=== PATIENT | male | born 1985 | race Caucasian/White ===

== ENCOUNTER 2022-11-15 05:17 | Emergency (ER) | payer OTHER ==
[2022-11-15 05:37] VITALS: BP 132/97; PULSE 74; RESP 20; TEMP 98.3; BMI 22.8
== END 2022-11-15 06:28 | disposition home or self-care (01) ==
LOC: JER 05:17
DX: H61.21 Impacted cerumen, right ear (principal)
CPT/HCPCS: 99283-25

== ENCOUNTER 2024-06-08 11:32 | Emergency (ER) | payer SELFPAY ==
[2024-06-08 11:48] VITALS: BP 132/75; PULSE 82; RESP 18; TEMP 98; BMI 25.8
== END 2024-06-08 14:11 | disposition left against medical advice (07) ==
LOC: JER 11:32
DX: H00.034 Abscess of left upper eyelid (principal)
CPT/HCPCS: 99283-25; 99284-25